=== PATIENT | male | born 1955 | race Caucasian/White ===

== ENCOUNTER → 2016-11-17 | Outpatient (CLI) | payer OTHER ==
[2016-11-17 08:31] LABS: ALANINE AMINOTRANSFERASE 34 U/L (21-72); ALBUMIN 4.2 g/dL (3.5-5.0); ALKALINE PHOSPHATASE 97 U/L (38-126); ANION GAP 10 (5-19); ASPARTATE AMINO TRANSFERASE 20 U/L (17-59); BILIRUBIN,DIRECT 0.3 mg/dL (0.0-0.4); BILIRUBIN,TOTAL 0.7 mg/dL (0.2-1.3); BLOOD UREA NITROGEN 25 mg/dL (7-20); CALCIUM 9.7 mg/dL (8.4-10.2); CARBON DIOXIDE 25 mmol/L (22-30); CHLORIDE 103 mmol/L (98-107); CHOLESTEROL 198.96 mg/dL (0-200); CREATININE RESULT 0.79 mg/dL (0.52-1.25); Direct HDL 49 mg/dL (>40); GLUCOSE 138 mg/dL (75-110); SODIUM 138.2 mmol/L (137-145); TOTAL PROTEIN 7.5 g/dL (6.3-8.2); TRIGLYCERIDES 127 mg/dL (<150)
[2016-11-17 08:42] LABS: DIRECT LDL 97 mg/dL (<100)
== END ==
LOC: OD 07:07
PROVIDERS: ATTEND Internal Medicine
DX: E78.4 Other hyperlipidemia (principal); I25.10 Atherosclerotic heart disease of native coronary artery without angina pectoris; I42.9 Cardiomyopathy, unspecified; I10 Essential (primary) hypertension; Z79.899 Other long term (current) drug therapy; I48.1 Persistent atrial fibrillation; I48.3 Typical atrial flutter; Z95.1 Presence of aortocoronary bypass graft; H54.40 Blindness, one eye, unspecified eye; I25.2 Old myocardial infarction
CPT/HCPCS: 36415; 80053; 80061

== ENCOUNTER → 2016-11-26 | Outpatient (CLI) | payer OTHER ==
--- NOTE | 2016-12-07 14:40 | XCELERA REPORT ---
[address] [address] Transthoracic Echocardiogram Report Name: EMANUEL OKEEFE Age: 61 yrs Gender: Male : 1955 Patient Status: Outpatient Patient Location: Study Date: 11/26/2016 08:00 AM Height: 69 in Weight: 214 lb BSA: 2.1 m2 Procedure: A two-dimensional transthoracic echocardiogram with color flow and Doppler was performed. The study was technically adequate with some images being suboptimal in quality. Reason For Study: A-FLUTTER / A-FIB History: A-FLUTTER / A-FIB. Ordering Physician: MAY ELMORE Performed By: Jay Wynn Interpretation Summary The left ventricle is normal in size. There is normal left ventricular wall thickness. Left ventricular systolic function is low normal. LV EF is 55% Doppler measurements suggest normal left ventricular diastolic function The left ventricular wall motion is normal. There is no thrombus. There is no ventricular septal defect visualized. The left atrium is moderately dilated. 6 mm PFO with L to R shunt. There is no evidence of mitral valve prolapse. There is no vegetation seen on the mitral valve. There is no mitral valve stenosis. There is a mild amount of mitral regurgitation There is no aortic valvular vegetation. There is no aortic valve stenosis There is no LVOT obstruction. There is a mild amount of aortic regurgitation There is no tricuspid stenosis. There is a mild amount of tricuspid regurgitation Right ventricular systolic pressure is normal. RVSP is 27 mm of Hg , with RA mean of 5. There is no pericardial effusion. MMode/2D Measurements \T\ Calculations RVDd: 3.7 cm LVIDd: 5.9 cm FS: 26.8 % Ao root diam: 3.4 cm IVSd: 0.94 cm LVIDs: 4.3 cm EDV(Teich): 170.1 ml LVPWd: 0.95 cm ESV(Teich): 82.3 ml Ao root area: 9.2 cm2 EF(Teich): 51.6 % LA dimension: 4.7 cm Doppler Measurements \T\ Calculations MV E max wayne: MV P1/2t max wayne: Ao V2 max: AI max wayne: 62.9 cm/sec 62.6 cm/sec 127.6 cm/sec 436.4 cm/sec MV A max wayne: MV P1/2t: 50.0 msec Ao max PG: AI max P.7 cm/sec 6.5 mmHg 77.0 mmHg MV E/A: 1.7 MVA(P1/2t): 4.4 cm2 AI dec slope: MV dec slope: 366.9 cm/sec2 177.9 cm/sec2 AI P1/2t: 718.6 msec LV V1 max PG: PA V2 max: PI end-d wayne: TR max wayne: 4.0 mmHg 67.1 cm/sec 92.3 cm/sec 235.4 cm/sec LV V1 max: PA max P.8 mmHg TR max P.9 cm/sec 22.2 mmHg Left Ventricle The left ventricle is normal in size. There is normal left ventricular wall thickness. Left ventricular systolic function is low normal. LV EF is 55%. Doppler measurements suggest normal left ventricular diastolic function. The left ventricular wall motion is normal. There is no thrombus. There is no ventricular septal defect visualized. Right Ventricle The right ventricle is normal in size and function. Atria The right atrium is normal. The left atrium is moderately dilated. 6 mm PFO with L to R shunt. Mitral Valve There is no evidence of mitral valve prolapse. There is no vegetation seen on the mitral valve. There is no mitral valve stenosis. There is a mild amount of mitral regurgitation. Aortic Valve The aortic valve is trileaflet. The aortic valve opens well. There is no aortic valvular vegetation. There is no aortic valve stenosis. There is no LVOT obstruction. There is a mild amount of aortic regurgitation. Tricuspid Valve There is no tricuspid stenosis. There is a mild amount of tricuspid regurgitation. Right ventricular systolic pressure is normal. RVSP is 27 mm of Hg , with RA mean of 5. Pulmonic Valve There is no pulmonic valvular stenosis. There is a trace amount of pulmonic regurgitation. Great Vessels The aortic root is normal size. Effusions There is no pericardial effusion. : MAY ELMORE > May Elmore
== END ==
LOC: SP 06:50
PROVIDERS: ATTEND Specialist
DX: I48.3 Typical atrial flutter (principal); I48.91 Unspecified atrial fibrillation
CPT/HCPCS: 93306

== ENCOUNTER 2017-03-18 07:30 | Day surgery (SDC) | payer OTHER ==
[~2017-03-18 07:30] MED LIST: DIPHENHYDRAMINE HCL 50 MG/ML VIAL ONE; EPINEPHRINE INJ 1 MG/10 ML DISP.SYRIN ONE; FLUMAZENIL INJ 0.5 MG/5 ML VIAL ONE; GLUCAGON,HUMAN RECOMB 1 MG INJ ONE; NALOXONE HCL INJ/PF 0.4 MG/1 ML SDV ONE; ONDANSETRON HCL INJ/PF 4 MG/2 ML SDV ONE
[2017-03-18] MEDS: MIDAZOLAM 2 MG/2 ML INJ ONE ×3 (08:11→08:21)
[2017-03-18] MEDS: FENTANYL CITRATE INJ/PF 100 MCG/2 ML AMPUL ONE ×2 (08:13→08:17)
--- NOTE | 2017-03-18 08:28 | Operative Report ---
Operative Report DATE OF SURGERY: 03/18/17 Operative Report: The risks benefits and alternatives of the procedure explained to the patient in detail and informed consent is obtained.A GIF Olympus video scope was inserted into the patient's mouth and hypopharynx, the esophagus is identified intubated and insufflated, the scope was then advanced through the esophagus stomach and duodenum, retroflexion maneuver is done, the esophagus stomach and first and second portions of the duodenum examined PREOPERATIVE DIAGNOSIS: Olson's esophagus POSTOPERATIVE DIAGNOSIS: Status post ablation, small islands noted OPERATION: EGD with ablation SURGEON: ASIM TEE ANESTHESIA: Moderate Sedation - 5 mg of Versed, 100 mcg of fentanyl. Conscious sedation monitoring time 30 minutes. TISSUE REMOVED OR ALTERED: None. COMPLICATIONS: None. ESTIMATED BLOOD LOSS: None. INTRAOPERATIVE FINDINGS: As noted above. PROCEDURE: Patient tolerated procedure well. No immediate postprocedure complications are noted. Patient discharged in good condition. Discharge date 03/18/2017. Discharge diet: Regular. Discharge activity: Regular. 2-3 week follow-up to discuss findings. Patient is instructed to call the office or proceed to the emergency room should there be any further problems or questions.
[2017-03-18 09:49] VITALS: BP 115/70
== END 2017-03-18 09:35 | disposition home or self-care (01) ==
LOC: END 07:30
PROVIDERS: ATTEND Internal Medicine Gastroenterology
PROC: 0D558ZZ Destruction of Esophagus, Via Natural or Artificial Opening Endoscopic (ICD-10-PCS; principal; 2017-03-18 08:00)
DX: K22.70 Barrett's esophagus without dysplasia (principal); I10 Essential (primary) hypertension
CPT/HCPCS: 43270; J2250; J3010; J0171; J1200; J1610; J2310; J2405; J3490

== ENCOUNTER → 2017-06-04 | Outpatient (CLI) | payer OTHER ==
[2017-06-04 08:44] LABS: ALANINE AMINOTRANSFERASE 40 U/L (21-72); ALBUMIN 4.2 g/dL (3.5-5.0); ALKALINE PHOSPHATASE 80 U/L (38-126); ANION GAP 11 (5-19); ASPARTATE AMINO TRANSFERASE 25 U/L (17-59); BILIRUBIN,DIRECT 0.2 mg/dL (0.0-0.4); BILIRUBIN,TOTAL 0.3 mg/dL (0.2-1.3); BLOOD UREA NITROGEN 22 mg/dL (7-20); CALCIUM 9.4 mg/dL (8.4-10.2); CARBON DIOXIDE 26 mmol/L (22-30); CHLORIDE 104 mmol/L (98-107); CHOLESTEROL 199.12 mg/dL (0-200); CREATININE RESULT 0.82 mg/dL (0.52-1.25); Direct HDL 57 mg/dL (>40); GLUCOSE 105 mg/dL (75-110); POTASSIUM 4.8 mmol/L (3.6-5.0); SODIUM 140.9 mmol/L (137-145); TOTAL PROTEIN 6.9 g/dL (6.3-8.2); TRIGLYCERIDES 174 mg/dL (<150)
[2017-06-04 08:55] LABS: DIRECT LDL 102 mg/dL (<100)
[2017-06-04 08:56] LABS: VLDL CHOLESTEROL 34.8 mg/dL (10-31)
== END ==
LOC: OD 07:10
PROVIDERS: ATTEND Internal Medicine
DX: I48.0 Paroxysmal atrial fibrillation (principal); I25.10 Atherosclerotic heart disease of native coronary artery without angina pectoris; I48.3 Typical atrial flutter; Z95.1 Presence of aortocoronary bypass graft; I42.9 Cardiomyopathy, unspecified; E78.4 Other hyperlipidemia; H54.40 Blindness, one eye, unspecified eye
CPT/HCPCS: 36415; 80053; 80061; 83036

== ENCOUNTER → 2017-06-12 | Outpatient (CLI) | payer OTHER ==
[2017-06-12 13:34] LABS: ALANINE AMINOTRANSFERASE 38 U/L (21-72); ALBUMIN 4.4 g/dL (3.5-5.0); ALKALINE PHOSPHATASE 95 U/L (38-126); ASPARTATE AMINO TRANSFERASE 22 U/L (17-59); BILIRUBIN,DIRECT 0.4 mg/dL (0.0-0.4); BILIRUBIN,TOTAL 0.5 mg/dL (0.2-1.3); TOTAL PROTEIN 7.6 g/dL (6.3-8.2)
[2017-06-16 13:27] LABS: LEAD UR None Detected ug/L (0-49); MERCURY UR None Detected ug/L (0-19)
== END ==
LOC: OD 12:25
PROVIDERS: ATTEND Specialist
DX: M10.9 Gout, unspecified (principal); G62.9 Polyneuropathy, unspecified
CPT/HCPCS: 36415; 80076; 82175; 82607; 83655; 83825; 84550

== ENCOUNTER → 2017-07-27 | Outpatient (CLI) | payer OTHER ==
--- NOTE | 2017-07-27 12:46 | RADIOLOGY REPORT (SQ) ---
EXAM DESCRIPTION: FOOT LEFT COMPLETE COMPLETED DATE/TIME: 07/27/2017 9:53 am REASON FOR STUDY: LEFT FOOT PAIN M25.511 PAIN IN RIGHT SHOULDER COMPARISON: None. NUMBER OF VIEWS: Three views. TECHNIQUE: AP, lateral and oblique radiographic images acquired of the left foot. LIMITATIONS: None. FINDINGS: MINERALIZATION: Overall normal bone density BONES: Patient has old medial and lateral ankle hardware from fracture. The talus is diffusely abnormal. There is osteonecrosis with sclerosis and fragmentation of the talu s, disruption and disorganization of the tibiotalar joint and subtalar joints. Diffuse bony sclerosi s along the subtalar joints is seen. These changes may represent a Charcot foot or neuropathic joint . The other tarsal bones, metatarsals and phalanges are unremarkable. JOINTS: Try space narrowing, articular surface sclerosis and irregularity at the tibiotalar and subta lar joints. Findings are worrisome for neuropathic joint SOFT TISSUES: Diffuse medial and lateral malleolar soft tissue swelling. OTHER: No other significant finding. IMPRESSION: Markedly abnormal tibiotalar and subtalar joints as above. Old bimalleolar fracture with hardware present TECHNICAL DOCUMENTATION: JOB ID: [id number] [employer]- All Rights Reserved
--- NOTE | 2017-07-27 12:48 | RADIOLOGY REPORT (SQ) ---
EXAM DESCRIPTION: SHOULDER RIGHT 2 OR MORE VIEWS COMPLETED DATE/TIME: 07/27/2017 9:53 am REASON FOR STUDY: RT SHOULDER PAIN M25.511 PAIN IN RIGHT SHOULDER COMPARISON: None. NUMBER OF VIEWS: Three views. TECHNIQUE: Internal rotation, external rotation, and Y view images acquired of the right shoulder. LIMITATIONS: None. FINDINGS: MINERALIZATION: Osteopenic BONES: No acute fracture or dislocation. No worrisome bone lesions. JOINTS: No glenohumeral dislocation. Acromioclavicular joint unremarkable VISUALIZED LUNGS AND RIBS: No pneumothorax. No rib fracture. SOFT TISSUES: No radiopaque foreign body. OTHER: No other significant finding. IMPRESSION: NEGATIVE STUDY OF THE RIGHT SHOULDER. NO RADIOGRAPHIC EVIDENCE OF ACUTE INJURY. TECHNICAL DOCUMENTATION: JOB ID: [id number] [employer]- All Rights Reserved
== END ==
LOC: OD 09:08
PROVIDERS: ATTEND Family Medicine
DX: M79.672 Pain in left foot (principal); M25.511 Pain in right shoulder

== ENCOUNTER → 2017-08-23 | Outpatient (CLI) | payer OTHER ==
--- NOTE | 2017-08-23 11:23 | RADIOLOGY REPORT (SQ) ---
EXAM DESCRIPTION: MRI RT UPPER JOINT WITHOUT COMPLETED DATE/TIME: 08/23/2017 10:17 am REASON FOR STUDY: RIGHT SHOULDER PAIN, UNSPECIFIED CHRONICITY M25.511 PAIN IN RIGHT SHOULDER M25.57 2 PAIN IN LEFT ANKLE AND JOINTS OF LEFT FOOT COMPARISON: None. TECHNIQUE: Right shoulder images acquired and stored on PACS. Multiplanar imaging to include fat sen sitive sequences such as T1, water sensitive sequences such as FST2/STIR, cartilage sensitive sequenc es such as FSPD/gradient-echo sequences. LIMITATIONS: Patient motion. FINDINGS: BONE MARROW AND CORTEX: No worrisome bone lesions or marrow replacement. No occult fractur es. JOINT OR BURSAL EFFUSION: No significant joint or bursal fluid. No suggestion of loose bodies. GLENO-HUMERAL ARTICULATION: Intact. ACROMION AND AC JOINT: Type 2. Moderate AC joint arthropathy. Distal acromial spur. ROTATOR CUFF AND INTERVAL: Heterogeneous increased signal throughout the cuff. Intrasubstance tears of the supraspinatus and infraspinatus. Rim rent tear of the supraspinatus. No rotator interval tear. No rotator interval thickening to suggest adhesive capsulitis. LABRUM AND BICEPS LABRAL COMPLEX: Intact. No labral tear. Intra-articular long-head biceps tendon n ormal. Distal biceps in normal location in bicipital groove. REMAINDER OF LABRUM AND IGHL : No gross tear or paralabral cyst formation. Labral evaluation is less than optimal without joint distention. No thickening of IGHL to suggest adhesive capsulitis. PERIARTICULAR AND ADJACENT SOFT TISSUES: No masses or abnormal nodes. OTHER: No other significant finding. IMPRESSION: 1. Diffuse tendinopathy. Rim rent and partial thickness intrasubstance tears of the supraspinatus. Intrasubstance tear of the infraspinatus. No full-thickness tear. 2. AC joint arthropathy. TECHNICAL DOCUMENTATION: JOB ID: [id number] [employer]- All Rights Reserved
--- NOTE | 2017-08-23 11:30 | RADIOLOGY REPORT (SQ) ---
EXAM DESCRIPTION: MRI LT LOWER JOINT WITHOUT COMPLETED DATE/TIME: 08/23/2017 10:17 am REASON FOR STUDY: LEFT ANKLE PAIN M25.511 PAIN IN RIGHT SHOULDER M25.572 PAIN IN LEFT ANKLE AND AUGUSTIN INTS OF LEFT FOOT COMPARISON: None. TECHNIQUE: Left ankle images acquired and stored on PACS. Multiplanar images include fat sensitive s equences as T1, fluid sensitive sequences as FST2/STIR, cartilage sensitive sequences as FSPD, and gr adient echo sequences. LIMITATIONS: Susceptibility artifact status post bimalleolar fracture repair with screw in the media l malleolus and plate and screws in the lateral malleolus. FINDINGS: There are marked osteoarthritic changes in the ankle and subtalar joint with remodeling of the articular surfaces. Extensive subchondral cyst formation along the articular margin of the ankl e and subtalar joints. No acute fracture is identified. No obvious recent ligament or tendon injury. Plantar fascia and Achilles intact. No bursal fluid co llections. IMPRESSION: 1. Technical limitations due to metal artifact. There is advanced degenerative changes in the ankle and subtalar joint with remodeling of the articular surfaces. This could also represent early stages of a neuropathic joint. Clinical correlation is needed. 2. No obvious acute ligament or tendon injury. TECHNICAL DOCUMENTATION: JOB ID: [id number] [employer]- All Rights Reserved
== END ==
LOC: RAD 08:40
PROVIDERS: ATTEND Family Medicine
DX: M25.511 Pain in right shoulder (principal); M25.572 Pain in left ankle and joints of left foot

== ENCOUNTER → 2017-09-05 | Outpatient (CLI) | payer OTHER ==
[2017-09-05 09:38] LABS: ALANINE AMINOTRANSFERASE 35 U/L (21-72); ALBUMIN 4.5 g/dL (3.5-5.0); ALKALINE PHOSPHATASE 90 U/L (38-126); ASPARTATE AMINO TRANSFERASE 19 U/L (17-59); BILIRUBIN,DIRECT 0.1 mg/dL (0.0-0.4); BILIRUBIN,TOTAL 0.7 mg/dL (0.2-1.3); CHOLESTEROL 159.16 mg/dL (0-200); TOTAL PROTEIN 6.9 g/dL (6.3-8.2); TRIGLYCERIDES 121 mg/dL (<150)
[2017-09-05 09:49] LABS: DIRECT LDL 73 mg/dL (<100)
== END ==
LOC: OD 08:03
PROVIDERS: ATTEND Internal Medicine
DX: I48.0 Paroxysmal atrial fibrillation (principal); I25.10 Atherosclerotic heart disease of native coronary artery without angina pectoris; E78.4 Other hyperlipidemia; I10 Essential (primary) hypertension; I42.9 Cardiomyopathy, unspecified; I48.3 Typical atrial flutter; Z95.1 Presence of aortocoronary bypass graft; H54.40 Blindness, one eye, unspecified eye; I25.2 Old myocardial infarction; Z79.899 Other long term (current) drug therapy
CPT/HCPCS: 36415; 80061; 80076

== ENCOUNTER → 2017-12-01 | Outpatient (CLI) | payer OTHER ==
[2017-12-01 17:39] LABS: ANION GAP 11 (5-19); BLOOD UREA NITROGEN 17 mg/dL (7-20); CALCIUM 9.8 mg/dL (8.4-10.2); CARBON DIOXIDE 27 mmol/L (22-30); CHLORIDE 105 mmol/L (98-107); GLUCOSE 88 mg/dL (75-110); SODIUM 142.7 mmol/L (137-145)
== END ==
LOC: OD 15:29
PROVIDERS: ATTEND Internal Medicine
DX: I25.10 Atherosclerotic heart disease of native coronary artery without angina pectoris (principal); I10 Essential (primary) hypertension; I48.0 Paroxysmal atrial fibrillation; I48.3 Typical atrial flutter; I42.9 Cardiomyopathy, unspecified; E78.4 Other hyperlipidemia; Z95.1 Presence of aortocoronary bypass graft; H54.40 Blindness, one eye, unspecified eye; I25.2 Old myocardial infarction; Z79.899 Other long term (current) drug therapy
CPT/HCPCS: 36415; 80048

== ENCOUNTER 2018-09-06 07:17 | Day surgery (SDC) | payer MEDICARE, OTHER ==
[2018-09-06] MEDS ORDERED: PROPOFOL INJ 200 MG/20 ML VIAL IV ONE (07:21)
[2018-09-06] MEDS ORDERED: ONDANSETRON HCL INJ/PF 4 MG/2 ML SDV ONE (08:01)
[2018-09-06 09:25] VITALS: BP 95/71
--- NOTE | 2018-09-06 15:16 | Operative Report ---
Operative Report DATE OF SURGERY: 09/06/18 Operative Report: The risks, benefits and alternatives of the procedure including the risk of bleeding, perforation requiring surgery have been explained to the patient in detail and informed consent has been obtained. Patient is brought back to the endoscopy suite and placed in the left, lateral decubital position. Timeout was called. Propofol medication is administered. Rectal examination is done which did not reveal any masses, tears or fissures. An Olympus videoscope was introduced into the patient's rectum. The scope was then carefully advanced all the way to the cecum. The cecum was identified by the usual anatomical landmarks including the ileocecal valve as well as the appendiceal office. Photodocumentation is obtained. The scope was then sequentially pulled back via the various segments of the colon including the ascending colon, hepatic flexure, transverse colon, splenic flexure, descending colon and finally into the rectosigmoid portions of the colon. Retroflexion maneuver was performed. PREOPERATIVE DIAGNOSIS: Personal history of polyp POSTOPERATIVE DIAGNOSIS: Right colon Inflammation status post biopsy rule out lymphocytic colitis. Internal hemorrhoids. Transverse colon polypremoved via cold biopsy forceps OPERATION: Colonoscopy with biopsy SURGEON: ASIM TEE ANESTHESIA: LMAC TISSUE REMOVED OR ALTERED: As noted above. COMPLICATIONS: None. ESTIMATED BLOOD LOSS: None. INTRAOPERATIVE FINDINGS: As noted above. PROCEDURE: Patient tolerated the procedure well. No immediate postprocedure complications are noted. Discharged in good condition. Discharge date 09/06/2018. Discharge diet: Regular. Discharge activity: Regular. 2-3-week follow-up to discuss findings. Patient is instructed to call the office or proceed to the emergency room should there be any further proximal questions. Wait on the pathology. 3-5-year surveillance colonoscopy.
== END 2018-09-06 09:25 | disposition home or self-care (01) ==
LOC: END 07:17
PROVIDERS: ATTEND Internal Medicine Gastroenterology
DX: Z85.038 Personal history of other malignant neoplasm of large intestine (principal); D12.3 Benign neoplasm of transverse colon; K52.9 Noninfective gastroenteritis and colitis, unspecified; K64.8 Other hemorrhoids; I25.10 Atherosclerotic heart disease of native coronary artery without angina pectoris; R06.02 Shortness of breath; I48.91 Unspecified atrial fibrillation
CPT/HCPCS: 45380; 88305 ×2; J2405; J2704; 811

== ENCOUNTER 2018-10-09 08:48 | Inpatient (IN) | payer MEDICARE, OTHER ==
[2018-10-09] MEDS ORDERED: SOTALOL HCL 80 MG TABLET PO ONE (11:45)
[2018-10-09] MEDS ORDERED: PROPOFOL INJ 200 MG/20 ML VIAL IV ONE (12:20)
[2018-10-09 12:40] LABS: MEAN CORPUSCULAR HEMOGLOBIN 30.4 pg (27.0-33.4); MEAN CORPUSCULAR HGB CONC 34.3 g/dL (32.0-36.0); MEAN CORPUSCULAR VOLUME 89 fl (80-97); PLATELET COUNT 261 10^3/uL (150-450); RED BLOOD COUNT 3.95 10^6/uL (4.35-5.55); RED CELL DISTRIBUTION WIDTH 14.3 % (11.5-14.0); WHITE BLOOD COUNT 8.5 10^3/uL (4.0-10.5)
[2018-10-09 12:57] LABS: ANION GAP 7 (5-19); BLOOD UREA NITROGEN 19 mg/dL (7-20); CALCIUM 9.8 mg/dL (8.4-10.2); CARBON DIOXIDE 25 mmol/L (22-30); CHLORIDE 105 mmol/L (98-107); GLUCOSE 111 mg/dL (75-110); POTASSIUM 4.2 mmol/L (3.6-5.0); SODIUM 137.3 mmol/L (137-145)
--- NOTE | 2018-10-09 14:59 | PDOC H&P ---
History of Present Illness Admission Date/PCP: 10/09/18 08:48 FAVIAN VALDEZ DO Patient with history of persistent atrial fibrillation admitted for elective cardioversion Patient complains of: Patient with history of persistent atrial fibrillation, admitted for chemical/electrical cardioversion electively. History of Present Illness: EMANUEL OKEEFE is a 63 year old male The patient has a past history of atrial flutter with which was ablated. The patient subsequently developed atrial fibrillation. The patient now states that he feels very tired and fatigued and with minimal exertion he has rapid palpitations. Hence the patient admitted for being started on sotalol and for elective DC cardioversion. He has a history of coronary artery disease. History of coronary bypass graft surgery. He also has a history of hypertension. 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 He has a history of hyperlipidemia. He has had a history of Olson's esophagus which was ablated with an ablation procedure in March 2016. The patient has no anginal symptoms. He has no leg edema PND orthopnea. His chronic leg pain and is on oxycodone for this. Past Medical History Cardiac Medical History: Reports: Atrial Fibrillation, Coronary Artery Disease - S/P CABG X 2 2010, Myocardial Infarction, Hyperlipidema, Hypertension - PUL EDEMA HX Pulmonary Medical History: Denies: Asthma, Bronchitis, Chronic Obstructive Pulmonary Disease (COPD), Pneumonia, Respiratory Failure, Sleep Apnea, Tuberculosis EENT Medical History: Reports: None Neurological Medical History: Reports: None Denies: Seizures Endocrine Medical History: Reports: None Renal/ Medical History: Reports: None Malignancy Medical History: Reports: None GI Medical History: Reports: Gastroesophageal Reflux Disease, Hiatal Hernia, Other - He has a past history of Olson's esophagus, status post ablation. There Musculoskeltal Medical History: Reports: Arthritis Skin Medical History: Reports: None Psychiatric Medical History: Denies: Alcohol Dependency, Depression, Personality Disorder, Schizoaffective Disorder, Substance Abuse Hematology: Reports: None Denies: Anemia Infectious Medical History: Reports: None Past Surgical History Past Surgical History: Reports: Coronary Artery Bypass Graft, Other - EGD, knee surgery, Atrial flutter ablation. Ablation of Olson's esoph Social History Smoking Status: Never Smoker Frequency of Alcohol Use: None Hx Recreational Drug Use: No Hx Prescription Drug Abuse: No - Advance Directive Resuscitation Status: Full Code Surrogate healthcare decision maker:: The patient's sister is his surrogate healthcare decision maker. Family History Family History: CAD, Other - Pacemaker placement. Medication/Allergy Home Medications: Allopurinol [Zyloprim 100 mg Tablet] 100 mg PO DAILY 10/09/18 Amlodipine Besylate [Norvasc 5 mg Tablet] 5 mg PO DAILY 10/09/18 Apixaban [Eliquis 5 mg Tablet] 5 mg PO Q12 10/09/18 Aspirin [Aspirin 81 mg Chewable Tablet] 81 mg PO DAILY 10/09/18 Atorvastatin Calcium [Lipitor 40 mg Tablet] 40 mg PO QHS 10/09/18 Carvedilol [Coreg 25 mg Tablet] 25 mg PO BID 10/09/18 Colchicine [Colcrys 0.6 mg Tablet] 0.6 mg PO Q12 10/09/18 Digoxin [Lanoxin 0.125 mg Tablet] 0.125 mg PO QPM 10/09/18 Furosemide [Lasix 20 mg Tablet] 20 mg PO QAM 10/09/18 Gabapentin [Neurontin] 800 mg PO Q8 10/09/18 Isosorbide Mononitrate [Imdur 30 mg Tablet.er] 30 mg PO DAILY 10/09/18 Lisinopril [Zestril] 20 mg PO DAILY 10/09/18 Multivitamin [Daily Multiple Vitamin] 1 tab PO DAILY 10/09/18 Baltic-3 Acid Ethyl Esters [Lovaza 1 gm Capsule] 2 gm PO DAILY 10/09/18 Oxycodone HCl [Oxy-Ir 5 mg Tablet] 20 mg PO Q6HP PRN 10/09/18 Tamsulosin HCl [Flomax 0.4 mg Cap.sr] 0.4 mg PO QPM 10/09/18 Zolpidem Tartrate [Ambien] 10 mg PO QHS 10/09/18 Allergies/Adverse Reactions: No Known Allergies Allergy (Verified 09/06/18 07:43) Review of Systems Constitutional: PRESENT: fatigue, weakness. ABSENT: anorexia, chills, fever(s), headache(s), night sweats, weight gain, weight loss Eyes: PRESENT: other - He is blind in the left eye due to trauma in the past.. ABSENT: visual disturbances Nose, Mouth, and Throat: PRESENT: other - He has no hayfever or nosebleeds. No hearing loss.. ABSENT: headache(s), mouth pain, sore throat, vertigo Cardiovascular: PRESENT: dyspnea on exertion, palpitations. ABSENT: chest pain, edema, orthropnea Respiratory: PRESENT: dyspnea, other - He has no wheezing. ABSENT: cough, hemoptysis, sputum Gastrointestinal: ABSENT: abdominal pain, coffee ground emesis, constipation, diarrhea, dysphagia, hematemesis, hematochezia Genitourinary: PRESENT: other - He has no history of chronic kidney disease.. ABSENT: difficulty urinating, dysuria, hematuria, nocturia Musculoskeletal: PRESENT: as per HPI Integumentary: ABSENT: diaphoresis, erythema - There is no jaundice., lesions, pruritus, wounds, other Neurological: PRESENT: other - There is no TIA CVA. ABSENT: abnormal gait, abnormal speech, focal weakness, frequent falls, memory loss, syncope, tremor(s), vertigo Psychiatric: ABSENT: anxiety, depression, hallucinations, homidical ideation Hematologic/Lymphatic: PRESENT: other - No heat or cold intolerance. No polydipsia or polyuria.. ABSENT: easy bleeding, easy bruising, lymphadenopathy Allergic/Immunologic: ABSENT: seasonal rhinorrhea Physical Exam Vital Signs: Temp Pulse Resp BP Pulse Ox 97.7 F 67 16 114/63 93 10/09/18 11:06 10/09/18 11:06 10/09/18 11:06 10/09/18 11:06 10/09/18 11:06 Intake & Output 10/08/18 10/09/18 10/10/18 06:59 06:59 06:59 Intake Total 0 Balance 0 Weight 99.9 kg General appearance: PRESENT: no acute distress, well-developed, well-nourished Head exam: PRESENT: atraumatic, normocephalic Eye exam: PRESENT: other - Blindness of left eye right eye is normal Mouth exam: PRESENT: moist, neck supple, tongue midline. ABSENT: dry mucosa, laceration Teeth exam: ABSENT: dental caries, dental tenderness, edentulous, poor dentation Throat exam: ABSENT: post pharyngeal erythema, tonsillar erythema, tonsillar exudate, tonsillogmegaly Neck exam: PRESENT: full ROM, other - Neck is supple.. ABSENT: carotid bruit, JVD, lymphadenopathy, meningismus, thyromegaly, tracheal deviation Respiratory exam: PRESENT: clear to auscultation kane, symmetrical, unlabored. ABSENT: accessory muscle use, prolonged expiratory phas, tachypnea Cardiovascular exam: PRESENT: other - S1 is of variable intensity. There is no S3 or S4 gallops.. ABSENT: clicks, RRR, rubs, systolic murmur GI/Abdominal exam: PRESENT: normal bowel sounds, soft. ABSENT: ascites, guarding, hernia, organolmegaly, rebound, rigid Rectal exam: PRESENT: deferred Gentrourinary exam: PRESENT: other - Not examined. Extremities exam: PRESENT: full ROM. ABSENT: calf tenderness, clubbing, joint swelling, pedal edema, tenderness Musculoskeletal exam: PRESENT: full ROM, normal inspection, other - No acute francisca int swelling or tenderness.. ABSENT: deformity, tenderness Neurological exam: PRESENT: alert, awake, oriented to person, oriented to place, oriented to time, oriented to situation, CN II-XII grossly intact. ABSENT: motor sensory deficit Psychiatric exam: PRESENT: other - Judgment and insight are intact. His affect is normal. Focused psych exam: ABSENT: psychomotor agitation, restlessness Skin exam: PRESENT: normal color, warm. ABSENT: abrasion, cyanosis, erythema, pallor, rash, skin tears, urticaria Results Laboratory Results: 10/09/18 12:16 10/09/18 12:16 10/09/18 10/09/18 12:16 12:16 WBC 8.5 RBC 3.95 L Hgb 12.0 L Hct 35.0 L MCV 89 MCH 30.4 MCHC 34.3 RDW 14.3 H Plt Count 261 Sodium 137.3 Potassium 4.2 Chloride 105 Carbon Dioxide 25 Anion Gap 7 BUN 19 Creatinine 0.85 Est GFR ( Amer) > 60 Est GFR (Non-Af Amer) > 60 Glucose 111 H Calcium 9.8 Magnesium 2.4 H EKG Comments: Pre-cardioversion the patient's EKG shows atrial fibrillation with controlled ventricular response. There is evidence of digitalization by ST segment changes in the lateral leads. Subsequent to DC cardioversion the patient has sinus rhythm. With minor nondiagnostic nonspecific ST changes in the anterior leads. Assessment & Plan - Diagnosis (1) Paroxysmal atrial fibrillation Is this a current diagnosis for this admission?: Yes (2) Atrial fibrillation status post cardioversion Is this a current diagnosis for this admission?: Yes (3) Coronary artery disease involving [place] heart without angina pectoris Qualifiers: Coronary Disease-Associated Artery/Lesion type: [place] artery Qualified Code(s): I25.10 - Atherosclerotic heart disease of [place] coronary artery without angina pectoris Is this a current diagnosis for this admission?: Yes (4) History of coronary artery bypass graft Is this a current diagnosis for this admission?: Yes (5) Hypertension Qualifiers: Hypertension type: essential hypertension Qualified Code(s): I10 - Essential (primary) hypertension Is this a current diagnosis for this admission?: Yes (6) Blindness left eye category 5, normal vision right eye Is this a current diagnosis for this admission?: Yes (7) Hyperlipidemia Qualifiers: Hyperlipidemia type: other hyperlipidemia Qualified Code(s): E78.49 - Other hyperlipidemia; E78.4 - Other hyperlipidemia Is this a current diagnosis for this admission?: Yes - Time Anticipated discharge: Home Within: Other - Within 48-72 hours, since patient started on sotalol. - Inpatient Certification Based on my medical assessment, after consideration of the patient's comorbid ities, presenting symptoms, or acuity I expect that the services needed warrant INPATIENT care.: Yes I certify that my determination is in accordance with my understanding of Medicare's requirements for reasonable and necessary INPATIENT services [42 CFR 412.3e].: Yes Medical Necessity: Need Close Monitoring Due to Risk of Patient Decompensation, Need For Continuous Telemetry Monitoring, Risk of Complication if Not Cared For in Hospital Post Hospital Care: Other - Patient will be discharged home.
[2018-10-09] MEDS ORDERED: OXYCODONE HCL SR 10 MG TABLET PO SCH ×2 (15:30→18:00)
--- NOTE | 2018-10-09 16:03 | EKG REPORT ---
SEVERITY:- ABNORMAL ECG - SINUS RHYTHM PROBABLE INFERIOR INFARCT, AGE INDETERMINATE : Confirmed by: Mateo Trent MD 09-Oct-2018 16:02:33
--- NOTE | 2018-10-09 16:04 | EKG REPORT ---
SEVERITY:- ABNORMAL ECG - SINUS RHYTHM ATRIAL PREMATURE COMPLEX BORDERLINE INFERIOR Q WAVES CONSIDER POSTERIOR INFARCT MINIMAL ST DEPRESSION, ANTEROLATERAL LEADS BORDERLINE PROLONGED QT INTERVAL : Confirmed by: Mateo Trent MD 09-Oct-2018 16:03:01
[2018-10-09] MEDS: OXYCODONE HCL IR 5 MG TABLET PO SCH ×2 (18:16→23:10)
--- NOTE | 2018-10-09 19:23 | Progress Note ---
Provider Note Provider Note: CARDIOLOGY PROCEDURE NOTE: Date of DC cardioversion is 10/09/2018. At 1 PM PROCEDURE: Elective DC cardioversion of atrial fibrillation TO SINUS RHYTHM. Associate Dean Of Women: Dr. May Ace. TISSUE REMOVED: None BLOOD LOSS: None Procedure: Discussed the risks and benefits of DC cardioversion of the patient's atrial fibrillation to sinus rhythm. The risk and complications suggest skin macario, stroke, development of ventricular arrhythmias or atrial standstill, or bradycardia, requiring CPR and sometimes temporary or permanent pacemaker, but all discussed in detail and informed consent was obtained. Defibrillator pads were applied to the front and back of the chest wall and with anesthesia giving the patient deep sedation the patient was cardioverted with 200 J of synchronized DC biphasic current. With the first shock the patient went into sinus rhythm. Patient awakened from the sedation and moves all 4 extremities. And there was no complications. The patient is awake alert and oriented x3. Impression IMPRESSION: Successful DC cardioversion of atrial fibrillation. We will continue the patient on sotalol. In view of this will observe the patient's heart rhythm on the telemetry for 48-72 hours, and get serial EKGs and enzymes, since the patient has been started on sotalol. This is to see if there is any proarrhythmic effect of sotalol. The whole procedure took about 10-15 minutes.
[2018-10-09] MEDS: COLCHICINE 0.6 MG TABLET PO SCH (21:39)
[2018-10-09] MEDS: SOTALOL HCL 80 MG TABLET PO SCH (21:40)
[2018-10-09] MEDS: APIXABAN 5 MG TABLET PO SCH (21:40)
[2018-10-09] MEDS: ATORVASTATIN CALCIUM 40 MG TABLET PO SCH (21:40)
[2018-10-10] MEDS: OXYCODONE HCL IR 5 MG TABLET PO SCH ×4 (06:24→23:43)
[2018-10-10] MEDS: FUROSEMIDE 20 MG TABLET PO SCH (07:34)
--- NOTE | 2018-10-10 09:56 | EKG REPORT ---
SEVERITY:- DEFECTIVE ECG - SINUS RHYTHM FIRST DEGREE AV BLOCK PROBABLE INFERIOR INFARCT, AGE INDETERMINATE PRECORDIAL LEADS SWITCHED V2 AND V3, REPEAT EKG. : Confirmed by: Mateo Trent MD 10-Oct-2018 09:56:15
[2018-10-10] MEDS: AMLODIPINE BESYLATE 5 MG TABLET PO SCH (10:19)
[2018-10-10] MEDS: COLCHICINE 0.6 MG TABLET PO SCH ×2 (10:19→21:51)
[2018-10-10] MEDS: ASPIRIN 81 MG TABLET, CHEWABLE PO SCH (10:19)
[2018-10-10] MEDS: APIXABAN 5 MG TABLET PO SCH ×2 (10:19→21:51)
[2018-10-10] MEDS: ALLOPURINOL 100 MG TABLET PO SCH (10:20)
--- NOTE | 2018-10-10 13:31 | PDOC PROGRESS REPORT ---
Subjective Progress Note for:: 10/10/18 Subjective:: The patient denies any chest pain or discomfort. There is no PND orthopnea. There is no shortness of breath. There is no leg edema. Patient remains in sinus rhythm. He is bradycardic with a first-degree AV block. In view of this bradycardia the patient's sotalol has been held and he has not received any further dose of sotalol. We will have to decrease his dosage of sotalol. There is no recurrence of atrial fibrillation. There is no ventricular arrhythmia seen on the monitor. The patient's QTC is normal. There is no bleeding on Eliquis. There is no TIA CVA symptoms. Reason For Visit: AFIB Atrial fibrillation status post cardioversion. At present in sinus mechanism. Physical Exam Vital Signs: Temp Pulse Resp BP Pulse Ox 97.4 F 69 16 140/82 H 99 10/10/18 12:26 10/10/18 12:26 10/10/18 12:26 10/10/18 12:26 10/10/18 12:26 Intake & Output 10/09/18 10/10/18 10/11/18 06:59 06:59 06:59 Intake Total 355 355 Output Total 1525 400 Balance -1170 -45 Weight 99.3 kg General appearance: PRESENT: no acute distress, well-developed, well-nourished Head exam: PRESENT: atraumatic, normocephalic Eye exam: ABSENT: conjunctival injection, conjunctiva pink, nystagmus - The patient has left eye blindness. The right eye is normal. The right pupil is normal with normal reaction to light and accommodation. The right ex extraocular movements is normal. There is no right eye conjunctival pallor or scleral icterus. Mouth exam: PRESENT: moist, neck supple, tongue midline Teeth exam: ABSENT: dental caries, edentulous, poor dentation Throat exam: ABSENT: post pharyngeal erythema, tonsillar erythema, tonsillar exudate, tonsillogmegaly Neck exam: ABSENT: carotid bruit, JVD, lymphadenopathy, meningismus, tenderness, thyromegaly, tracheal deviation Respiratory exam: PRESENT: other - Clear to auscultation percussion. No rhonchi rales or wheezing.. ABSENT: accessory muscle use Cardiovascular exam: PRESENT: bradycardia, other - S1 is of normal intensity. There is no gallops. Systolic murmur left sternal border and the apex. No rubs. Pulses: PRESENT: normal carotid pulses, normal radial pulses, normal femoral pulses, normal dorsalis pedis pul Vascular exam: PRESENT: normal capillary refill, other - There is no cyanosis or clubbing. ABSENT: pallor GI/Abdominal exam: PRESENT: normal bowel sounds, soft. ABSENT: distended, guarding, organolmegaly, rebound, tenderness Rectal exam: PRESENT: deferred Gentrourinary exam: ABSENT: ecchymosis, erythema, lesions, scrotal swelling Extremities exam: ABSENT: calf tenderness, clubbing, joint swelling, pedal edema, tenderness Musculoskeletal exam: PRESENT: ambulatory, full ROM, normal inspection. ABSENT: deformity, dislocation, tenderness Neurological exam: PRESENT: alert, awake, oriented to person, oriented to place, oriented to time, oriented to situation, reflexes normal, CN II-XII grossly intact, motor sensory deficit, normal gait. ABSENT: abnormal gait, ataxia Psychiatric exam: PRESENT: other - Patient judgment and insight are intact. His affect is normal. Skin exam: PRESENT: normal color, warm. ABSENT: abrasion, mottled, pallor, urticaria, vesicles Results Laboratory Results: 10/09/18 12:16 10/09/18 12:16 EKG Comments: Sinus bradycardia with first-degree AV block. Probable old inferior HI. QTC is normal at 447. Assessment & Plan - Diagnosis (1) Paroxysmal atrial fibrillation Is this a current diagnosis for this admission?: Yes (2) Atrial fibrillation status post cardioversion Is this a current diagnosis for this admission?: Yes (3) Coronary artery disease involving [place] heart without angina pectoris Qualifiers: Coronary Disease-Associated Artery/Lesion type: [place] artery Qualified Code(s): I25.10 - Atherosclerotic heart disease of [place] coronary artery without angina pectoris Is this a current diagnosis for this admission?: Yes (4) History of coronary artery bypass graft Is this a current diagnosis for this admission?: Yes (5) Hypertension Qualifiers: Hypertension type: essential hypertension Qualified Code(s): I10 - Essential (primary) hypertension Is this a current diagnosis for this admission?: Yes (6) Blindness left eye category 5, normal vision right eye Is this a current diagnosis for this admission?: Yes (7) Hyperlipidemia Qualifiers: Hyperlipidemia type: other hyperlipidemia Qualified Code(s): E78.49 - Other hyperlipidemia; E78.4 - Other hyperlipidemia Is this a current diagnosis for this admission?: Yes - Notes Notes: Continue monitoring patient on telemetry. We will start the patient on low- dose of sotalol at 40 mg p.o. every 12 hours. Continue Eliquis. Hopefully we will discharge the patient home tomorrow. Continue to watch for any pro arrhythmia on sotalol check EKG in the morning for QTC measurement. - Time Time with patient: 15-25 minutes Medications reviewed and adjusted accordingly: Yes Anticipated discharge: Home Within: within 48 hours Disposition: The patient is full code. His sister is his surrogate healthcare decision maker. This is unchanged
[2018-10-10] MEDS: SOTALOL HCL 80 MG TABLET PO SCH ×2 (14:20→21:52)
[2018-10-10] MEDS: GABAPENTIN 400 MG CAPSULE PO SCH (21:50)
[2018-10-10] MEDS: ZOLPIDEM TARTRATE 5 MG TABLET PO SCH (21:51)
[2018-10-10] MEDS: ATORVASTATIN CALCIUM 40 MG TABLET PO SCH (21:51)
[2018-10-11] MEDS: OXYCODONE HCL IR 5 MG TABLET PO SCH ×4 (05:28→23:41)
[2018-10-11] MEDS: GABAPENTIN 400 MG CAPSULE PO SCH ×3 (05:29→21:17)
--- NOTE | 2018-10-11 06:46 | EKG REPORT ---
SEVERITY:- ABNORMAL ECG - SINUS RHYTHM PROBABLE INFERIOR INFARCT, AGE INDETERMINATE MILD NONSPECIFIC ANTEROLATERAL ST CHANGES : Confirmed by: Mateo Trent MD 11-Oct-2018 06:45:35
[2018-10-11] MEDS: FUROSEMIDE 20 MG TABLET PO SCH (08:01)
[2018-10-11] MEDS: ALLOPURINOL 100 MG TABLET PO SCH (09:48)
[2018-10-11] MEDS: APIXABAN 5 MG TABLET PO SCH ×2 (09:48→21:17)
[2018-10-11] MEDS: AMLODIPINE BESYLATE 5 MG TABLET PO SCH (09:48)
[2018-10-11] MEDS: COLCHICINE 0.6 MG TABLET PO SCH ×2 (09:48→21:18)
[2018-10-11] MEDS: ASPIRIN 81 MG TABLET, CHEWABLE PO SCH (09:48)
[2018-10-11] MEDS: SOTALOL HCL 80 MG TABLET PO SCH ×3 (09:50→22:03)
[2018-10-11] MEDS: ATORVASTATIN CALCIUM 40 MG TABLET PO SCH (21:18)
[2018-10-11] MEDS: ZOLPIDEM TARTRATE 5 MG TABLET PO SCH (21:18)
--- NOTE | 2018-10-11 22:06 | PDOC PROGRESS REPORT ---
Subjective Progress Note for:: 10/11/18 Subjective:: The patient is in sinus bradycardia with heart rates being in the 50s. Hence the patient did not receive his sotalol this last night or this morning. He denies any chest pain or discomfort. There is no anginal symptoms. There is no PND orthopnea. There is no recurrence of atrial fibrillation. There is no ventricular arrhythmias seen. There is no leg edema. There is no bleeding on Eliquis. There is no TIA CVA symptoms. Will restart the patient's sotalol when the heart rate is about 60. But for now will hold his sotalol. Reason For Visit: PAROXYSMAL ATRIAL FIBRILLATION,ATRIAL FIBRILLATION Physical Exam Vital Signs: Temp Pulse Resp BP Pulse Ox 98.3 F 61 20 139/72 H 93 10/11/18 19:19 10/11/18 19:19 10/11/18 19:19 10/11/18 19:19 10/11/18 19:19 Intake & Output 10/10/18 10/11/18 10/12/18 06:59 06:59 06:59 Intake Total 166 859 2121 Output Total 1525 400 Balance -5396 892 9505 Weight 99.3 kg 97.8 kg General appearance: PRESENT: no acute distress, well-developed, well-nourished Head exam: PRESENT: atraumatic, normocephalic Eye exam: PRESENT: other - He has blindness in the left eye. Right eye pupils are regular, reactive to light and accommodation. There is no clinical pallor or scleral icterus. Extraocular movements are normal. Ear exam: PRESENT: normal external ear exam, TM's normal bilaterally. ABSENT: bleeding Mouth exam: PRESENT: moist, neck supple, tongue midline Teeth exam: ABSENT: dental caries, edentulous, poor dentation Throat exam: ABSENT: post pharyngeal erythema, tonsillar erythema, tonsillar exudate, tonsillogmegaly Neck exam: ABSENT: carotid bruit, JVD, lymphadenopathy, meningismus, tracheal deviation Respiratory exam: PRESENT: other - Lungs are clear to auscultation percussion, without rhonchi rales or wheezing. There is no chest wall tenderness on pal pation.. ABSENT: accessory muscle use Cardiovascular exam: PRESENT: other - S1-S2 is heard. S1 is of normal intensity. There is systolic murmur left sternal border and the apex. There is no rub Vascular exam: PRESENT: normal capillary refill, other - There is no cyanosis or clubbing.. ABSENT: pallor GI/Abdominal exam: PRESENT: normal bowel sounds, soft. ABSENT: ascites, distended, organolmegaly, tenderness Rectal exam: PRESENT: deferred Gentrourinary exam: ABSENT: lesions, scrotal swelling Extremities exam: PRESENT: full ROM, other - Femorals are well felt. There is no femoral bruits. Leg pulses are well felt. There is no DVT or cellulitis.. ABSENT: calf tenderness, clubbing, joint swelling, pedal edema, tenderness Musculoskeletal exam: PRESENT: full ROM, normal inspection, other - There is no acute joint swelling or inflammation. Neurological exam: PRESENT: alert, awake, oriented to person, oriented to place, oriented to time, oriented to situation, reflexes normal, CN II-XII grossly intact. ABSENT: motor sensory deficit Psychiatric exam: PRESENT: appropriate affect, normal mood Skin exam: PRESENT: normal color, warm. ABSENT: abrasion, cyanosis, mottled, pallor, urticaria, vesicles Results Laboratory Results: 10/09/18 12:16 10/09/18 12:16 Assessment & Plan - Diagnosis (1) Paroxysmal atrial fibrillation Is this a current diagnosis for this admission?: Yes (2) Atrial fibrillation status post cardioversion Is this a current diagnosis for this admission?: Yes (3) Coronary artery disease involving [place] heart without angina pectoris Qualifiers: Coronary Disease-Associated Artery/Lesion type: [place] artery Qualified Code(s): I25.10 - Atherosclerotic heart disease of [place] coronary artery without angina pectoris Is this a current diagnosis for this admission?: Yes (4) History of coronary artery bypass graft Is this a current diagnosis for this admission?: Yes (5) Hypertension Qualifiers: Hypertension type: essential hypertension Qualified Code(s): I10 - Essential (primary) hypertension (6) Blindness left eye category 5, normal vision right eye Is this a current diagnosis for this admission?: Yes (7) Hyperlipidemia Qualifiers: Hyperlipidemia type: other hyperlipidemia Qualified Code(s): E78.49 - Other hyperlipidemia; E78.4 - Other hyperlipidemia Is this a current diagnosis for this admission?: Yes - Notes Notes: Recommend continue observation. Will restart the patient's sotalol when the heart rate goes above 60. Continue Eliquis. We will continue his current other medications. We will recheck the patient's EKG in the morning for QTC measurement. Will observe the patient for of any arrhythmias on the monitor. Medical decision making is of moderate complexity. 35 minutes spent on this patient more than 50% of time spent in direct patient care. - Time Anticipated discharge: Home Within: within 48 hours
[2018-10-12] MEDS: OXYCODONE HCL IR 5 MG TABLET PO SCH ×4 (05:37→23:12)
[2018-10-12] MEDS: GABAPENTIN 400 MG CAPSULE PO SCH ×3 (05:37→21:06)
[2018-10-12] MEDS: FUROSEMIDE 20 MG TABLET PO SCH (08:15)
[2018-10-12] MEDS: AMLODIPINE BESYLATE 5 MG TABLET PO SCH (10:13)
[2018-10-12] MEDS: ALLOPURINOL 100 MG TABLET PO SCH (10:13)
[2018-10-12] MEDS: APIXABAN 5 MG TABLET PO SCH ×2 (10:13→21:06)
[2018-10-12] MEDS: COLCHICINE 0.6 MG TABLET PO SCH ×2 (10:13→21:06)
[2018-10-12] MEDS: SOTALOL HCL 80 MG TABLET PO SCH ×2 (10:13→21:06)
[2018-10-12] MEDS: ASPIRIN 81 MG TABLET, CHEWABLE PO SCH (10:13)
[2018-10-12] MEDS: ATORVASTATIN CALCIUM 40 MG TABLET PO SCH (21:06)
[2018-10-12] MEDS: ZOLPIDEM TARTRATE 5 MG TABLET PO SCH (21:06)
--- NOTE | 2018-10-12 21:40 | PDOC PROGRESS REPORT ---
Subjective Progress Note for:: 10/12/18 Subjective:: The patient is in sinus bradycardia with heart rates being in the 50s. Hence the patient did not receive his sotalol this last night or this morning. He denies any chest pain or discomfort. There is no anginal symptoms. There is no PND orthopnea. There is no recurrence of atrial fibrillation. There is no ventricular arrhythmias seen. There is no leg edema. There is no bleeding on Eliquis. There is no TIA CVA symptoms. The patient's heart rate is above 60, and hence I have started the patient on sotalol 40 mg p.o. every 12 hours. His QTC is acceptable. There is no pleural arrhythmias on the sotalol Reason For Visit: PAROXYSMAL ATRIAL FIBRILLATION,ATRIAL FIBRILLATION Physical Exam Vital Signs: Temp Pulse Resp BP Pulse Ox 98.4 F 60 16 127/69 H 94 10/12/18 15:18 10/12/18 19:00 10/12/18 15:18 10/12/18 15:18 10/12/18 15:18 Intake & Output 10/11/18 10/12/18 10/13/18 06:59 06:59 06:59 Intake Total 591 1203 1754 Output Total 400 Balance 191 1203 1754 Weight 97.8 kg 97.9 kg General appearance: PRESENT: no acute distress, well-developed, well-nourished Head exam: PRESENT: atraumatic, normocephalic Eye exam: PRESENT: conjunctiva pink - Left eye is blind. Right eye pupils reactive to light and accommodation. Right external ocular movements are normal. There is no palatal pallor or scleral icterus. Ear exam: ABSENT: bleeding, drainage, TM's normal bilaterally Mouth exam: PRESENT: moist, neck supple, tongue midline Teeth exam: ABSENT: dental caries, edentulous Throat exam: ABSENT: post pharyngeal erythema, tonsillar erythema, tonsillar exudate, tonsillogmegaly Neck exam: ABSENT: carotid bruit, full ROM, JVD, lymphadenopathy, meningismus, tenderness, thyromegaly, tracheal deviation Respiratory exam: PRESENT: other - Lungs are clear to auscultation percussion. There is no rhonchi rales or wheezing.. ABSENT: accessory muscle use Cardiovascular exam: PRESENT: other - S1-S2 is heard. There is no S3 gallop. There is no S4 gallop. S1 is of normal intensity. Systolic murmur at the left sternal border and apex. There is no rub Pulses: PRESENT: normal carotid pulses, normal radial pulses, normal femoral pulses, normal dorsalis pedis pul Vascular exam: PRESENT: normal capillary refill. ABSENT: pallor GI/Abdominal exam: PRESENT: normal bowel sounds. ABSENT: organolmegaly, rebound, rigid Rectal exam: PRESENT: deferred Gentrourinary exam: ABSENT: ecchymosis, lacerations, lesions Extremities exam: PRESENT: other - There is no cyanosis or clubbing.. ABSENT: calf tenderness, clubbing, joint swelling, pedal edema Neurological exam: PRESENT: alert, awake, oriented to person, oriented to place, oriented to time, oriented to situation, reflexes normal, CN II-XII grossly intact. ABSENT: motor sensory deficit Psychiatric exam: PRESENT: appropriate affect, normal mood Skin exam: PRESENT: normal color. ABSENT: abrasion, cyanosis, jaundice, urticaria Results Laboratory Results: 10/09/18 12:16 10/09/18 12:16 Assessment & Plan - Diagnosis (1) Paroxysmal atrial fibrillation Is this a current diagnosis for this admission?: Yes Plan: Continue the patient on sotalol. Watch patient heart rhythm for proarrhythmia and also get daily EKGs to assess QTC prolongation. Continue Eliquis. (2) Atrial fibrillation status post cardioversion Is this a current diagnosis for this admission?: Yes (3) Coronary artery disease involving [place] heart without angina pectoris Qualifiers: Coronary Disease-Associated Artery/Lesion type: [place] artery Qualified Code(s): I25.10 - Atherosclerotic heart disease of [place] coronary artery without angina pectoris Is this a current diagnosis for this admission?: Yes Plan: Continue current medications. (4) History of coronary artery bypass graft Is this a current diagnosis for this admission?: Yes (5) Hypertension Qualifiers: Hypertension type: essential hypertension Qualified Code(s): I10 - Essential (primary) hypertension Is this a current diagnosis for this admission?: Yes Plan: Continue current antihypertensive (6) Blindness left eye category 5, normal vision right eye Is this a current diagnosis for this admission?: Yes (7) Hyperlipidemia Qualifiers: Hyperlipidemia type: other hyperlipidemia Qualified Code(s): E78.49 - Other hyperlipidemia; E78.4 - Other hyperlipidemia Is this a current diagnosis for this admission?: Yes
--- NOTE | 2018-10-13 00:05 | EKG REPORT ---
SEVERITY:- ABNORMAL ECG - SINUS RHYTHM PROBABLE INFERIOR INFARCT, AGE INDETERMINATE BORDERLINE R WAVE PROGRESSION, ANTERIOR LEADS : Confirmed by: Ida Matthew 13-Oct-2018 00:05:08
[2018-10-13] MEDS: OXYCODONE HCL IR 5 MG TABLET PO SCH ×2 (05:05→11:10)
[2018-10-13] MEDS: GABAPENTIN 400 MG CAPSULE PO SCH ×2 (05:05→15:12)
[2018-10-13] MEDS: FUROSEMIDE 20 MG TABLET PO SCH (07:51)
[2018-10-13] MEDS: ALLOPURINOL 100 MG TABLET PO SCH (11:07)
[2018-10-13] MEDS: SOTALOL HCL 80 MG TABLET PO SCH (11:08)
[2018-10-13] MEDS: APIXABAN 5 MG TABLET PO SCH (11:09)
[2018-10-13] MEDS: AMLODIPINE BESYLATE 5 MG TABLET PO SCH (11:09)
[2018-10-13] MEDS: ASPIRIN 81 MG TABLET, CHEWABLE PO SCH (11:09)
[2018-10-13] MEDS: COLCHICINE 0.6 MG TABLET PO SCH (11:15)
--- NOTE | 2018-10-13 16:51 | PDOC DISCHARGE SUMMARY ---
General - Admit/Disc Date/PCP Admission Date/Primary Care Provider: 10/09/18 08:48 FAVIAN VALDEZ, Discharge Date: 10/13/18 - Discharge Diagnosis (1) Paroxysmal atrial fibrillation Is this a current diagnosis for this admission?: Yes (2) Atrial fibrillation status post cardioversion Is this a current diagnosis for this admission?: Yes (3) Coronary artery disease involving [place] heart without angina pectoris Is this a current diagnosis for this admission?: Yes (4) History of coronary artery bypass graft Is this a current diagnosis for this admission?: Yes (5) Hypertension Is this a current diagnosis for this admission?: Yes (6) Blindness left eye category 5, normal vision right eye Is this a current diagnosis for this admission?: Yes (7) Hyperlipidemia Is this a current diagnosis for this admission?: Yes - Additional Information Resuscitation Status: Full Code Home Medications: Allopurinol [Zyloprim 100 mg Tablet] 100 mg PO DAILY 10/09/18 Amlodipine Besylate [Norvasc 5 mg Tablet] 5 mg PO DAILY 10/09/18 Apixaban [Eliquis 5 mg Tablet] 5 mg PO Q12 10/09/18 Aspirin [Aspirin 81 mg Chewable Tablet] 81 mg PO DAILY 10/09/18 Atorvastatin Calcium [Lipitor 40 mg Tablet] 40 mg PO QHS 10/09/18 Carvedilol [Coreg 25 mg Tablet] 25 mg PO BID 10/09/18 Colchicine [Colcrys 0.6 mg Tablet] 0.6 mg PO Q12 10/09/18 Digoxin [Lanoxin 0.125 mg Tablet] 0.125 mg PO QPM 10/09/18 Furosemide [Lasix 20 mg Tablet] 20 mg PO QAM 10/09/18 Gabapentin [Neurontin] 800 mg PO Q8 10/09/18 Isosorbide Mononitrate [Imdur 30 mg Tablet.er] 30 mg PO DAILY 10/09/18 Lisinopril [Zestril] 20 mg PO DAILY 10/09/18 Multivitamin [Daily Multiple Vitamin] 1 tab PO DAILY 10/09/18 [place]-3 Acid Ethyl Esters [Lovaza 1 gm Capsule] 2 gm PO DAILY 10/09/18 Oxycodone HCl [Oxy-Ir 5 mg Tablet] 20 mg PO Q6HP PRN 10/09/18 Tamsulosin HCl [Flomax 0.4 mg Cap.sr] 0.4 mg PO QPM 10/09/18 Zolpidem Tartrate [Ambien] 10 mg PO QHS 10/09/18 Physical Exam Vital Signs: Temp Pulse Resp BP Pulse Ox 97.9 F 60 20 134/67 H 96 10/13/18 15:33 10/13/18 15:33 10/13/18 15:33 10/13/18 15:33 10/13/18 15:33 Intake & Output 10/12/18 10/13/18 10/14/18 06:59 06:59 06:59 Intake Total 1203 2498 405 Balance 1203 2498 405 Weight 97.9 kg 98.6 kg Results Laboratory Results: 10/09/18 12:16 10/09/18 12:16
[2018-10-13 17:27] VITALS: BP 125/68
--- NOTE | 2018-10-14 11:06 | EKG REPORT ---
SEVERITY:- ABNORMAL ECG - SINUS RHYTHM ATRIAL PREMATURE COMPLEX PROBABLE INFERIOR INFARCT, AGE INDETERMINATE : Confirmed by: Ida Matthew 14-Oct-2018 11:06:00
== END 2018-10-13 18:20 | disposition home or self-care (01) | DRG 310 ==
LOC: 3W 08:48
PROVIDERS: ADMIT Specialist; ATTEND Specialist
PROC: 5A2204Z Restoration of Cardiac Rhythm, Single (ICD-10-PCS; principal; 2018-10-09)
DX: I48.0 Paroxysmal atrial fibrillation (principal); I25.10 Atherosclerotic heart disease of native coronary artery without angina pectoris; I10 Essential (primary) hypertension; H54.42A5 Blindness left eye category 5, normal vision right eye; K21.9 Gastro-esophageal reflux disease without esophagitis; E78.49 Other hyperlipidemia; I44.0 Atrioventricular block, first degree; I25.2 Old myocardial infarction; Z95.1 Presence of aortocoronary bypass graft; Z79.82 Long term (current) use of aspirin; Z79.899 Other long term (current) drug therapy; Z82.49 Family history of ischemic heart disease and other diseases of the circulatory system
CPT/HCPCS: 36415; 410; 80048; 83735; 85027; 93005; 93010; J2704; J3490

== ENCOUNTER → 2018-11-26 | Outpatient (CLI) | payer MEDICARE, OTHER ==
[2018-11-26 09:18] LABS: ANION GAP 9 (5-19); BLOOD UREA NITROGEN 25 mg/dL (7-20); CALCIUM 9.9 mg/dL (8.4-10.2); CARBON DIOXIDE 28 mmol/L (22-30); CHLORIDE 102 mmol/L (98-107); GLUCOSE 120 mg/dL (75-110); POTASSIUM 4.9 mmol/L (3.6-5.0); SODIUM 138.5 mmol/L (137-145)
== END ==
LOC: OD 07:09
PROVIDERS: ATTEND Internal Medicine Cardiovascular Disease
DX: I48.91 Unspecified atrial fibrillation (principal)
CPT/HCPCS: 36415; 80048; 83735

== ENCOUNTER → 2019-04-26 | Outpatient (CLI) | payer MEDICARE, OTHER ==
--- NOTE | 2019-04-26 11:55 | RADIOLOGY REPORT (SQ) ---
EXAM DESCRIPTION: ANKLE LEFT COMPLETE COMPLETED DATE/TIME: 04/26/2019 10:35 am REASON FOR STUDY: PAIN IN LEFT ANKLE AND JOINTS OF LEFT FOOT M54.12 RADICULOPATHY, CERVICAL REGION M25.572 PAIN IN LEFT ANKLE AND JOINTS OF LEFT FOOT M25.512 PAIN IN LEFT SHOULDER COMPARISON: None. NUMBER OF VIEWS: Three views. TECHNIQUE: AP, lateral, and oblique radiographic images acquired of the left ankle. LIMITATIONS: None. FINDINGS: MINERALIZATION: Normal. BONES: A metallic plate with four screws in the distal fibula. A single screw extends from the medi al malleolus across to the distal tibia. Marked severe post traumatic osteoarthrosis with joint spac e narrowing, osteophytosis and subchondral sclerosis. Deformity of the calcaneus likely related prio r remote trauma. Degenerative changes at the mid-hindfoot. No acute osseous findings. JOINTS: See discussion above. SOFT TISSUES: No soft tissue swelling. No foreign body. OTHER: No other significant finding. IMPRESSION: 1. Hardware distal tibia and fibula. 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 2. Soft tissue swelling. As can best be determined, no acute osseous findings. TECHNICAL DOCUMENTATION: JOB ID: [id number] [employer]- All Rights Reserved Reading location - IP/workstation name: [email or web address]
--- NOTE | 2019-04-26 11:56 | RADIOLOGY REPORT (SQ) ---
EXAM DESCRIPTION: SHOULDER LEFT 2 OR MORE VIEWS COMPLETED DATE/TIME: 04/26/2019 10:35 am REASON FOR STUDY: PAIN IN LEFT SHOULDER M54.12 RADICULOPATHY, CERVICAL REGION M25.572 PAIN IN LEFT ANKLE AND JOINTS OF LEFT FOOT M25.512 PAIN IN LEFT SHOULDER COMPARISON: None. NUMBER OF VIEWS: Three views. TECHNIQUE: Internal rotation, external rotation, and Y view images acquired of the left shoulder. LIMITATIONS: None. FINDINGS: MINERALIZATION: Normal. BONES: No acute fracture. No worrisome bone lesions. JOINTS: Mild to moderate acromioclavicular arthrosis. No dislocation. VISUALIZED LUNGS AND RIBS: No pneumothorax. No rib fracture. Partially visualized prior anterior me kevin sternotomy. SOFT TISSUES: No radiopaque foreign body. OTHER: No other significant finding. IMPRESSION: 1. No acute osseous findings. TECHNICAL DOCUMENTATION: JOB ID: [id number] [employer]- All Rights Reserved Reading location - IP/workstation name: [email or web address]
--- NOTE | 2019-04-26 12:00 | RADIOLOGY REPORT (SQ) ---
EXAM DESCRIPTION: C SP 4 OR 5 VIEWS COMPLETED DATE/TIME: 04/26/2019 10:35 am REASON FOR STUDY: RADICULOPATHY, CERVICAL REGION M54.12 RADICULOPATHY, CERVICAL REGION M25.572 STELLA N IN LEFT ANKLE AND JOINTS OF LEFT FOOT M25.512 PAIN IN LEFT SHOULDER COMPARISON: None. NUMBER OF VIEWS: Five views. TECHNIQUE: AP, lateral, obliques and odontoid radiographic images acquired of the cervical spine. LIMITATIONS: None. FINDINGS: MINERALIZATION: Normal. ALIGNMENT: Anatomic. VERTEBRAE: Vertebral bodies of normal height. DISCS: No significant osteophytes or sclerosis. Disc height maintained. FORAMINA: Multilevel mild to moderate bilateral foraminal narrowing, more pronounced at C3-C4 and C4 -C5. No osteophytes or foraminal narrowing. LATERAL AND POSTERIOR ELEMENTS: Multilevel mild to moderate facet arthrosis. The lateral masses and spinous processes without significant findings. HARDWARE: None in the spine. SOFT TISSUES: No masses or calcifications. Lung apices clear. Partially visualized anterior median s ternotomy wires. OTHER: No other significant finding. IMPRESSION: 1. Multilevel mild to moderate bilateral facet arthrosis. 2. Mild to moderate bilateral foraminal narrowing, more pronounced at C3-C4 and C4-C5. TECHNICAL DOCUMENTATION: JOB ID: [id number] [employer]- All Rights Reserved Reading location - IP/workstation name: [email or web address]
== END ==
LOC: OD 10:07
PROVIDERS: ATTEND Family Medicine
DX: M54.12 Radiculopathy, cervical region (principal); M25.572 Pain in left ankle and joints of left foot; M25.512 Pain in left shoulder
CPT/HCPCS: 72050

== ENCOUNTER → 2019-09-10 | Outpatient (CLI) | payer MEDICARE, OTHER ==
[2019-09-10 10:50] LABS: ALBUMIN 4.3 g/dL (3.5-5.0); ALKALINE PHOSPHATASE 93 U/L (38-126); ANION GAP 9 (5-19); ASPARTATE AMINO TRANSFERASE 22 U/L (17-59); BILIRUBIN,TOTAL 0.7 mg/dL (0.2-1.3); BLOOD UREA NITROGEN 16 mg/dL (7-20); CALCIUM 9.5 mg/dL (8.4-10.2); CARBON DIOXIDE 28 mmol/L (22-30); CHLORIDE 101 mmol/L (98-107); CHOLESTEROL 168.79 mg/dL (0-200); GLUCOSE 116 mg/dL (75-110); POTASSIUM 4.2 mmol/L (3.6-5.0); TOTAL PROTEIN 7.3 g/dL (6.3-8.2); TRIGLYCERIDES 251 mg/dL (<150)
[2019-09-10 11:01] LABS: DIRECT LDL 63 mg/dL (<100)
[2019-09-10 11:04] LABS: VLDL CHOLESTEROL 50.2 mg/dL (10-31)
== END ==
LOC: OD 08:28
PROVIDERS: ATTEND Specialist
DX: I25.10 Atherosclerotic heart disease of native coronary artery without angina pectoris (principal); I10 Essential (primary) hypertension; R06.02 Shortness of breath; E78.49 Other hyperlipidemia; I25.5 Ischemic cardiomyopathy; Z95.1 Presence of aortocoronary bypass graft; H54.40 Blindness, one eye, unspecified eye; I48.3 Typical atrial flutter; E66.9 Obesity, unspecified; I48.0 Paroxysmal atrial fibrillation; Z79.899 Other long term (current) drug therapy
CPT/HCPCS: 36415; 80048; 80061; 80076; 83036